=== PATIENT | male | born 1970 | race Caucasian/White ===

== ENCOUNTER 2020-09-04 08:24 | Inpatient (IN) | payer OTHER ==
[~2020-09-04] VITALS: Ht 177.8 cm; Wt 103.0 kg
--- NOTE | 2020-09-04 08:35 | NUR ---
PT TRANSPORTED TO [facility] VIA AIR FROM [facility]. HE HAS PERFORATED HIS BOWEL PER CT SCAN. HE IS RECEIVING CARE FOR SEPSIS PROTOCOL WHILE AWAITING COMMUNICATIN FROM THE O.R. PAIN IS BEING CONTROLLED W IV MEDS. VS ARE STABLE, AND I WILL CONTINUE TO MONITOR AND TREAT ORDERED, WELL PRN WHILE AWAITING SURGERY.
[2020-09-04] MEDS ORDERED: HYDROmorphone 1 MG/ML, 1ML INJ ONE ×3 (08:40→13:39)
[2020-09-04] MEDS ORDERED: ONDANSETRON 2MG/ML, 2ML ONE ×2 (08:40→12:04)
[2020-09-04] MEDS ORDERED: LISI30TA4 PO (08:49)
[2020-09-04] MEDS ORDERED: LISI40TA PO (08:49)
--- NOTE | 2020-09-04 08:54 | NUR ---
LITER #4 OF NS INFUSING. SEPSIS PROTOCOL MET W ZOSYN ADMINISTERD AT [facility] AND NS INFUSED. VS STABLE AT THIS TIME.
--- NOTE | 2020-09-04 08:58 | NUR ---
SAL IS AT THE BEDSIDE FOR PERSONAL INFO.
[2020-09-04] MEDS ORDERED: ONDANSETRON 2MG/ML, 2ML IVPush ONE (09:00)
[2020-09-04] MEDS ORDERED: HYDROmorphone 1 MG/ML, 1ML INJ IV ONE ×2 (09:00→10:00)
[2020-09-04] MEDS ORDERED: SODIUM CHLORIDE 0.9% 1,000ML IVBOLUS ONE (09:30)
--- NOTE | 2020-09-04 09:35 | NUR ---
O.R. TECH IS AT THE BEDSIDE FOR CONSULT. TEAM IS BEING CALLED IN FOR SURGERY.
--- NOTE | 2020-09-04 10:09 | NUR ---
VERBAL SBAR EXCHANGED W RN IN THE O.R. WE WILL BEGIN TO PREPARE FOR TRANSPORT AT THIS TIME.
--- NOTE | 2020-09-04 10:21 | NUR ---
[facility] ([facility]) HERE TO TRANSPORT PT TO O.R.
[2020-09-04] MEDS ORDERED: CHLORHEXIDINE 15 ML UDC ONE (10:31)
[2020-09-04] MEDS ORDERED: LABETALOL 5MG/ML, 20ML IVPush PRN (11:00)
[2020-09-04] MEDS ORDERED: hydrALAzine 20 MG/ML, 1ML IVPush PRN (11:00)
[2020-09-04] MEDS ORDERED: ONDANSETRON 2MG/ML, 2ML IVPush PRN ×2 (11:00→12:00)
[2020-09-04] MEDS ORDERED: ENALAPRILAT 1.25 MG/ML, 2ML IVPush PRN (11:00)
[2020-09-04] MEDS ORDERED: FENTANYL PF 250 MCG/5ML ONE (11:06)
[2020-09-04] MEDS ORDERED: MIDAZOLAM 1 MG/ML, 2ML ONE (11:06)
[2020-09-04] MEDS ORDERED: VASOPRESSIN 20 UNIT/ML, 1ML ONE (11:26)
[2020-09-04] MEDS ORDERED: OXYMETAZOLINE NASAL SPRAY 0.05%,30ML ONE (11:44)
[2020-09-04] MEDS ORDERED: LORazepam 2 MG/ML, 1ML IVPush PRN (12:00)
[2020-09-04] MEDS ORDERED: PROMETHAZINE 25 MG/ML, 1ML IVPush PRN (12:00)
[2020-09-04] MEDS ORDERED: METHOCARBAMOL 1,000 MG in DEXTROSE 5% 100 ML IV PRN (12:00)
[2020-09-04] MEDS ORDERED: OXYcodone 5 MG/5 ML ORAL.SOL UDC PO PRN (12:00)
[2020-09-04] MEDS ORDERED: LABETALOL 5MG/ML, 20ML IV PRN (12:00)
[2020-09-04] MEDS ORDERED: ACETAMINOPHEN 325 MG TABLET PO PRN (12:00)
[2020-09-04] MEDS ORDERED: PROMETHAZINE 25 MG SUPP PR PRN (12:00)
[2020-09-04] MEDS ORDERED: hydrALAzine 20 MG/ML, 1ML IV PRN (12:00)
[2020-09-04] MEDS ORDERED: MEPERIDINE/PF 25MG/0.5ML IVPush PRN (12:00)
[2020-09-04] MEDS ORDERED: SUGAMMADEX 200 MG/2 ML IVPush ONE (12:04)
[2020-09-04] MEDS ORDERED: CEFAZOLIN 1,000 MG ONE (12:04)
[2020-09-04] MEDS ORDERED: GLYCOPYRROLATE 0.2MG/1ML, 5ML ONE (12:04)
[2020-09-04] MEDS ORDERED: SUCCINYLCHOLINE 20 MG/ML, 10ML ONE (12:04)
[2020-09-04] MEDS ORDERED: PROPOFOL 10 MG/ML, 20ML ONE (12:04)
[2020-09-04] MEDS ORDERED: ROCURONIUM 10MG/ML,5ML ONE (12:04)
[2020-09-04] MEDS ORDERED: NEOSTIGMINE 1 MG/ML, 10ML ONE (12:04)
[2020-09-04] MEDS ORDERED: FENTANYL PF 100 MCG/2ML ONE ×2 (12:53→13:09)
[2020-09-04] MEDS: FENTANYL PF 100 MCG/2ML IV PRN ×4 (12:57→13:29)
[2020-09-04] MEDS: HYDROmorphone 1 MG/ML, 1ML INJ IVPush PRN ×3 (13:45→13:59)
[2020-09-04] MEDS: morphine SULFATE 10 MG/ML, 1ML IVPush PRN ×3 (15:56→23:47)
[2020-09-04 19:41] VITALS: BP 109/73
[2020-09-04] MEDS: SODIUM CHLORIDE FLUSH 10ML SYR IVF SCH (19:58)
[2020-09-05 01:00] VITALS: BP 112/72
[2020-09-05] MEDS: morphine SULFATE 10 MG/ML, 1ML IVPush PRN ×6 (03:10→19:40)
[2020-09-05 03:57] VITALS: BP 105/63
[2020-09-05 05:42] LABS: MEAN PLATELET VOLUME 9.8 fL (7.4-10.4); PLATELET COUNT 64 x10^3/uL (130-400); RED BLOOD COUNT 4.67 x10^6/uL (4.38-5.82); RED CELL DISTRIBUTION WIDTH 14.8 % (9.4-14.8)
[2020-09-05 05:51] LABS: ALANINE AMINOTRANSFERASE 83 U/L (12-78); ALBUMIN 2.9 g/dL (3.4-5.0); ANION GAP 9 mmol/L (5-15); CALCIUM 7.9 mg/dL (8.5-10.1); CHLORIDE 108 mmol/L (98-107); CREATININE 1.55 mg/dL (0.7-1.3)
[2020-09-05 05:54] LABS: ALKALINE PHOSPHATASE 84 U/L (45-117); BILIRUBIN,TOTAL 4.9 mg/dL (0.2-1.0); TOTAL PROTEIN 6.8 g/dL (6.4-8.2)
[2020-09-05 06:23] LABS: MD YES
[2020-09-05 06:26] LABS: ANISOCYTOSIS 1+; BAND#(MANUAL) 3.15 x10^3/uL; BANDS%(MANUAL) 22 % (0-7); LYMPH#(MANUAL) 0.43 x10^3/uL (1-3.4); LYMPHS% (MANUAL) 3 % (22-44); METAMYELOCYTES# (MANUAL) 0.29 x10^3/uL (0-0); METAMYELOCYTES% (MANUAL) 2 % (0-1); MONOS#(MANUAL) 0.57 x10^3/uL (0.3-2.7); MONOS% (MANUAL) 4 % (2-9); MYELOCYTES# (MANUAL) 0.14 x10^3/uL (0-0); MYELOCYTES% (MANUAL) 1 % (0-0); SEG#(MANUAL) 9.72 x10^3/uL (1.8-6.8); SEGS% (MANUAL) 68 % (42-75)
[2020-09-05 06:27] LABS: <PLATELET ESTIMATE> DECREASED; <PLT MORPHOLOGY> NORMAL PLT MORPH; POLYCHROMASIA 1+
[2020-09-05] MEDS: SODIUM CHLORIDE FLUSH 10ML SYR IVF SCH ×2 (09:16→20:06)
[2020-09-05 09:20] VITALS: BP 123/77
[2020-09-05] MEDS ORDERED: PANTOPRAZOLE 40 MG IV IVPush SCH (11:30)
[2020-09-05] MEDS ORDERED: FLUCONAZOLE 200 MG/100 ML 100 ML IV SCH (11:30)
[2020-09-05] MEDS: PIPERACILLIN/TAZO/PMX 3.375GM 50 ML IV SCH ×2 (11:39→18:02)
[2020-09-05] MEDS: SODIUM CHLORIDE 0.9% 1,000 ML IV SCH (11:40)
[2020-09-05 12:49] VITALS: BP 112/67
[2020-09-05] MEDS ORDERED: OMEPRAZOLE 20 MG CAPSULE.DR PO SCH (16:00)
[2020-09-05] MEDS: ESOMEPRAZOLE 40 MG IV IVPush SCH (16:58)
[2020-09-05 18:38] VITALS: BP 113/72
[2020-09-06] MEDS: SODIUM CHLORIDE 0.9% 1,000 ML IV SCH
[2020-09-06] MEDS: PIPERACILLIN/TAZO/PMX 3.375GM 50 ML IV SCH ×2 (00:01→06:16)
[2020-09-06 00:42] VITALS: BP 111/65
[2020-09-06] MEDS: morphine SULFATE 10 MG/ML, 1ML IVPush PRN (01:33)
[2020-09-06] MEDS ORDERED: LORazepam 2 MG/ML, 1ML IVPush ONE (04:30)
[2020-09-06] MEDS: ESOMEPRAZOLE 40 MG IV IVPush SCH (04:49)
[2020-09-06 05:58] LABS: MEAN CORPUSCULAR HEMOGLOBIN 31.9 pg (27.5-34.5); MEAN CORPUSCULAR HGB CONC 33.2 g/dL (33.2-36.2); PLATELET COUNT 77 x10^3/uL (130-400); RED BLOOD COUNT 4.44 x10^6/uL (4.38-5.82); RED CELL DISTRIBUTION WIDTH 14.9 % (9.4-14.8)
[2020-09-06 06:06] LABS: ALBUMIN 2.9 g/dL (3.4-5.0); ANION GAP 8 mmol/L (5-15); CALCIUM 8.2 mg/dL (8.5-10.1); CHLORIDE 105 mmol/L (98-107)
[2020-09-06 06:11] LABS: ALANINE AMINOTRANSFERASE 76 U/L (12-78); ALKALINE PHOSPHATASE 71 U/L (45-117); BILIRUBIN,TOTAL 5.5 mg/dL (0.2-1.0); CREATININE 1.65 mg/dL (0.7-1.3)
[2020-09-06 06:36] LABS: MD YES
[2020-09-06 06:37] LABS: BAND#(MANUAL) 1.68 x10^3/uL; BANDS%(MANUAL) 12 % (0-7); LYMPH#(MANUAL) 1.12 x10^3/uL (1-3.4); LYMPHS% (MANUAL) 8 % (22-44); MONOS#(MANUAL) 1.12 x10^3/uL (0.3-2.7); MONOS% (MANUAL) 8 % (2-9); SEG#(MANUAL) 10.08 x10^3/uL (1.8-6.8); SEGS% (MANUAL) 72 % (42-75)
[2020-09-06 06:40] LABS: <PLATELET ESTIMATE> DECREASED; <PLT MORPHOLOGY> NORMAL PLT MORPH; <RBC MORPHOLOGY> NORMAL
[2020-09-06 06:41] LABS: PMNS WITH VACUOLES 1+
[2020-09-06 07:36] VITALS: BP 132/74
== END 2020-09-06 09:28 | disposition left against medical advice (07) | DRG 329 ==
LOC: ED 08:59 → EDIP 09:49 → 4NE 15:30
PROVIDERS: ADMIT Internal Medicine; ATTEND Internal Medicine
PROC: 0DU907Z Supplement Duodenum with Autologous Tissue Substitute, Open Approach (ICD-10-PCS; principal; 2020-09-04 10:00)
PROC: 0D9670Z Drainage of Stomach with Drainage Device, Via Natural or Artificial Opening (ICD-10-PCS; 2020-09-05)
DX: K27.5 Chronic or unspecified peptic ulcer, site unspecified, with perforation (principal); J18.9 Pneumonia, unspecified organism; K65.9 Peritonitis, unspecified; K57.80 Diverticulitis of intestine, part unspecified, with perforation and abscess without bleeding; K76.6 Portal hypertension; N17.9 Acute kidney failure, unspecified; I10 Essential (primary) hypertension; K74.60 Unspecified cirrhosis of liver; R00.0 Tachycardia, unspecified; Z98.1 Arthrodesis status; Z82.49 Family history of ischemic heart disease and other diseases of the circulatory system; Z80.6 Family history of leukemia; Z72.89 Other problems related to lifestyle
CPT/HCPCS: 36415; 71045; 76700; 80053; 80074; 82140; 85025; 87015; 87070; 87075; 87077; 87102; 87116; 87205; 87206; 93005; 99285; G0378; J0690; J1170; J2250; J2405; J2543; J2704; J2710; J3010; C1760; J0330; J1450; J2060; J2270; J2800; J7030